=== PATIENT | female | born 1990 | race Caucasian/White ===

== ENCOUNTER → 2017-01-26 | Outpatient (CLI) | payer SELFPAY ==
[2017-01-26 18:01] LABS: HBsAg Prenatal NEGATIVE (NEGATIVE)
[2017-01-26 18:34] LABS: BASO % 0.4 % (0.0-1.0); EOS # 0.1 K/mm3 (0.0-0.50); EOS % 0.8 % (0.0-3.0); LARGE UNSTAINED CELL # 0.1 K/mm3 (0.0-0.4); LARGE UNSTAINED CELL % 0.9 % (0.0-4.0); LYMPH # 1.5 K/mm3 (1.5-6.5); LYMPH % 15.2 % (24.0-44.0); MEAN CORPUSCULAR HEMOGLOBIN 31.7 pg (27.0-33.0); MEAN CORPUSCULAR HGB CONC 35.4 g/dl (32.0-36.5); MEAN CORPUSCULAR VOLUME 89.6 fl (80.0-96.0); MONO # 0.3 K/mm3 (0.0-0.8); MONO % 3.1 % (0.0-5.0); NEUTROPHILS # 7.4 K/mm3 (1.8-7.7); NEUTROPHILS % 79.6 % (36.0-66.0); PLATELET COUNT, AUTOMATED 235 k/mm3 (150-450); RED CELL DISTRIBUTION WIDTH 12.5 % (11.5-14.5); WHITE BLOOD COUNT 9.3 K/mm3 (4.0-10.0)
== END ==
LOC: M SMT 14:31
PROVIDERS: ATTEND Obstetrics & Gynecology
DX: Z34.81 Encounter for supervision of other normal pregnancy, first trimester (principal)

== ENCOUNTER → 2017-03-21 | Outpatient (CLI) | payer MEDICAID ==
[~2017-03-21] MED LIST: FLAG500T PO
--- NOTE | 2017-03-21 15:13 | REP ---
Obstetric ultrasound for anatomy: There is a single intrauterine gestation in a vertex presentation. There is motion and cardiac activity. The heart rate is 167 beats per minute. The placenta is anterior. There is no placenta previa or abruptio. Placenta is grade zero. The amniotic fluid volume subjectively is normal. The cervix measures 3.32 cm length. The maternal adnexa and cul-de-sac are unremarkable. Gestational age by the ultrasound today is 20 weeks 4 days with an FUENTES of 08/04/2017. Gestational age by LMP is 19 weeks 4 days. weight is 383 grams (0 pounds, 13 ounces). This is the 96th percentile for 19 weeks 4 days. The following anatomic structures are identified and are unremarkable: Intracranial lateral ventricles, choroid plexus, facial profile, lungs, four-chamber heart, cardiac right and left ventricular outflow tracts, diaphragm, stomach, cord insertion, three-vessel cord, kidneys, bladder, and upper lower extremities. The intracranial posterior fossa and spine could not be optimally demonstrated because of position. A followup study dedicated to these structures might be considered. Otherwise, there are no anomalies. Signed by Spike Lauren MD 03/21/2017 03:05 P
== END ==
LOC: M RAD 13:46
PROVIDERS: ATTEND Advanced Practice Midwife
DX: Z34.82 Encounter for supervision of other normal pregnancy, second trimester (principal); Z3A.19 19 weeks gestation of pregnancy

== ENCOUNTER → 2017-04-25 | Outpatient (CLI) | payer MEDICAID ==
[~2017-04-25] MED LIST changes: +FLINCHW9 PO
--- NOTE | 2017-04-25 16:43 | REP ---
OB ULTRASOUND: Real-time sonographic evaluation of the gravid uterus is performed. There is a single living intrauterine gestation with estimated gestational age of 24 weeks 4 days based on LMP with EDC 08/11/2017. Today's measurements indicate growth at the upper limits of normal. BPD 67 mm =26 weeks 6 days, over 95th percentile. HC 244 mm = 26 weeks 3 days, 90th percentile. AC 221 mm = 26 weeks 4 day, 90th percentile. Femur length 48 mm = 26 weeks 1 day, 83rd percentile. HC/AC ratio 1.10 within normal range. Estimated weight 936 grams over 97th percentile. heart rate 153 beats per minute. SEEN/GROSSLY UNREMARKABLE Lateral ventricles Yes Posterior fossa Yes Upper lip Yes Four-chamber heart No LVOT No RVOT No Stomach Yes Cord insertion No Three vessel cord No Kidneys Yes Bladder Yes Spine Yes position: Vertex. Placenta: Anterior and grade 0 with no previa or abruption. Amniotic fluid: Within normal limits. Cervix is closed and measures 3.2 cm in length. Signed by Spike Rivera MD 04/26/2017 05:35 P
== END ==
LOC: M RAD 14:32
PROVIDERS: ATTEND Obstetrics & Gynecology
DX: Z36 Encounter for antenatal screening of mother (principal); Z3A.26 26 weeks gestation of pregnancy

== ENCOUNTER → 2017-05-15 | Outpatient (CLI) | payer OTHER ==
[2017-05-15 14:04] LABS: MEAN CORPUSCULAR HEMOGLOBIN 30.1 pg (27.0-33.0); MEAN CORPUSCULAR VOLUME 91.2 fl (80.0-96.0); RED CELL DISTRIBUTION WIDTH 13.5 % (11.5-14.5); WHITE BLOOD COUNT 8.7 10^3/uL (4.0-10.0)
== END ==
LOC: M LAB 11:22
PROVIDERS: ATTEND Advanced Practice Midwife
DX: Z34.02 Encounter for supervision of normal first pregnancy, second trimester (principal)

== ENCOUNTER 2017-05-21 02:15 | Emergency (ER) | payer OTHER ==
[~2017-05-21] VITALS: Ht 162.6 cm; Wt 94.0 kg
[2017-05-21] MEDS ORDERED: FLAG500T PO (05:50)
[2017-05-21 06:00] VITALS: BP 110/66
== END 2017-05-21 06:00 | disposition home or self-care (01) ==
LOC: M ED 02:15
DX: O99.89 Other specified diseases and conditions complicating pregnancy, childbirth and the puerperium (principal); N76.0 Acute vaginitis; Z3A.29 29 weeks gestation of pregnancy

== ENCOUNTER 2017-06-18 22:36 | Outpatient (CLI) | payer OTHER ==
[~2017-06-18] VITALS: Ht 162.6 cm; Wt 97.4 kg
[~2017-06-18 22:36] MED LIST changes: -FLINCHW9 PO
[2017-06-18 22:52] VITALS: BP 123/78
[2017-06-18] MEDS ORDERED: FLINCHW9 PO (22:54)
[2017-06-18 23:22] LABS: MEAN CORPUSCULAR HEMOGLOBIN 29.9 pg (27.0-33.0); MEAN CORPUSCULAR HGB CONC 32.7 g/dl (32.0-36.5); MEAN CORPUSCULAR VOLUME 91.5 fl (80.0-96.0); PLATELET COUNT, AUTOMATED 193 10^3/uL (150-450); RED CELL DISTRIBUTION WIDTH 13.3 % (11.5-14.5); WHITE BLOOD COUNT 8.8 10^3/uL (4.0-10.0)
--- NOTE | 2017-06-19 00:10 | REPUSA ---
Clinical statement: Pain. Findings: The liver demonstrates uniform echotexture and echogenicity, with no mass lesions. The gall bladder is contracted, with numerous very tiny echogenic shadowing foci. There is no evidence of gall bladder wall thickening. The common bile duct measures 4 mm and is within normal limits. The pancrea s is limited in evaluation because of bowel gas. The spleen is unremarkable. The right kidney measure s 13.0 cm in length and the left kidney measures 14.0 cm in length. There is no evidence of hydroneph rosis or nephrolithiasis. The visualized portions of the aorta and inferior vena cava are within norm al limits. No ascites are seen. A intrauterine is demonstrated. heart rate measures 1 47 bpm. Impression: 1. Cholelithiasis, without evidence of acute cholecystitis. 2. No evidence of hydronephrosis or nephrolithiasis. 3. Single live intrauterine as described.
[2017-06-19 00:12] LABS: ALBUMIN 2.2 GM/DL (3.2-5.2); ALBUMIN/GLOBULIN RATIO 0.59 (1.00-1.93); ALKALINE PHOSPHATASE 131 U/L (45-117); ALT/SGPT 18 U/L (12-78); AMYLASE 32 U/L (25-115); AST/SGOT 6 U/L (7-37); BILIRUBIN,DIRECT < 0.1 MG/DL (0.0-0.2); BILIRUBIN,TOTAL 0.2 MG/DL (0.2-1.0); TOTAL PROTEIN 5.9 GM/DL (6.4-8.2)
--- NOTE | 2017-06-19 00:39 | IPNPDOC ---
Text Note Date of Service The patient was seen on 06/19/17. NOTE 27yo G1 FUENTES 08/11/17. Presents @ 32 wks with complaints of Left upper quadrant pain. Denies UC, LOF or bleeding. Fetus active. Pt reports pain is under her ribs, very uncomfortable. States she ate waffles, ham/cheese wrap and chicken fried steak with gravy today. NSt reactive, No UC FH 145, moderate variability, + accels Abdomen soft, gravid US shows gallbladder contracted with numerous echogenic shadowing foci. Amylase, lipase, LFT WNL CBC 8.8>10.9/33.3<193 Reviewed low fat diet, increased fluids. Discharge home. Routine precautions. Keep next appt VS,Fishbone, I+O VS, Fishbone, I+O Laboratory Tests 06/18/17 23:15 Red Blood Count 3.64 L, Mean Corpuscular Volume 91.5, Mean Corpuscular Hemoglobin 29.9, Mean Corpuscular Hemoglobin Concent 32.7, Red Cell Distribution Width 13.3 Vital Signs Date Time Temp Pulse Resp B/P (MAP) Pulse Ox O2 Delivery O2 Flow Rate FiO2 06/18/17 22:52 97.9 84 18 123/78 (93) Gilma Bonilla CNM Jun 19, 2017 00:39
== END 2017-06-19 00:30 | disposition home or self-care (01) ==
LOC: M LDO 22:36
PROVIDERS: ATTEND Obstetrics & Gynecology
DX: O99.89 Other specified diseases and conditions complicating pregnancy, childbirth and the puerperium (principal); Z3A.32 32 weeks gestation of pregnancy; K80.20 Calculus of gallbladder without cholecystitis without obstruction

== ENCOUNTER → 2017-06-21 | Outpatient (REF) | payer OTHER ==
[~2017-06-21] MED LIST changes: +FLINCHW9 PO
== END ==
LOC: M LAB REF 17:18
PROVIDERS: ATTEND Advanced Practice Midwife
DX: Z34.83 Encounter for supervision of other normal pregnancy, third trimester (principal); Z36.89 Encounter for other specified antenatal screening

== ENCOUNTER → 2017-07-17 | Outpatient (REF) | payer OTHER | LOC: M LAB REF 17:19 | PROVIDERS: ATTEND Advanced Practice Midwife | DX: Z34.83 Encounter for supervision of other normal pregnancy, third trimester (principal); Z3A.00 Weeks of gestation of pregnancy not specified ==

== ENCOUNTER 2017-08-09 03:02 | Inpatient (IN) | payer OTHER ==
[2017-08-09 06:58] LABS: HEMATOCRIT 36.1 % (36.0-47.0); HEMOGLOBIN 11.9 g/dl (12.0-16.0); MEAN CORPUSCULAR HEMOGLOBIN 29.6 pg (27.0-33.0); MEAN CORPUSCULAR VOLUME 89.8 fl (80.0-96.0); PLATELET COUNT, AUTOMATED 175 10^3/uL (150-450); RED BLOOD COUNT 4.02 10^6/uL (4.00-5.40); RED CELL DISTRIBUTION WIDTH 14.4 % (11.5-14.5); WHITE BLOOD COUNT 9.2 10^3/uL (4.0-10.0)
[2017-08-09 07:15] LABS: AMPHETAMINES URINE REFLEX NEGATIVE (NEGATIVE); BARBITURATES URINE REFLEX NEGATIVE (NEGATIVE); BENZODIAZEPINES URINE REFLEX NEGATIVE (NEGATIVE); CANNABINOIDS URINE REFLEX NEGATIVE (NEGATIVE); COCAINE METABOLITE URINE REFLE NEGATIVE (NEGATIVE); METHADONE URINE REFLEX NEGATIVE (NEGATIVE); OPIATES URINE REFLEX NEGATIVE (NEGATIVE); PHENCYCLIDINE URINE REFLEX NEGATIVE (NEGATIVE)
[2017-08-09] MEDS: LACTATED RINGER'S 1000 ML IV (09:30)
[2017-08-09] MEDS: OXYTOCIN DRIP 30 UNITS in APPROPRIATE DILUENT 1 EA IV ×2 (09:30→22:00)
[2017-08-09] MEDS ORDERED: FENTANYL 2MCG/ML ROPIVACAINE 0.2% IN 0.9% NACL 200ML IVBAG As Ordered (09:56)
[2017-08-09] MEDS ORDERED: FENTANYL/ROPIVACAINE/NACL BAG 200 ML EPIDURAL (10:30)
[2017-08-09] MEDS ORDERED: REFRIGERATOR IV KEYS XX (10:30)
[2017-08-09] MEDS ORDERED: ePHEDrine SULFATE 25 MG/5 ML(5MG/ML) SYRINGE IV (10:30)
[2017-08-09] MEDS ORDERED: NALOXONE INJ 0.4 MG/1 ML VIAL (J2310) IV (10:30)
[2017-08-09] MEDS ORDERED: EPIDURAL COMMENT XX (10:30)
[2017-08-09] MEDS ORDERED: ONDANSETRON 4MG/2ML VIAL (J2405) IV ×2 (10:30→21:45)
[2017-08-09] MEDS ORDERED: EPIDURAL/PCA KEYS XX (10:30)
[2017-08-09] MEDS ORDERED: diphenhydrAMINE INJ 50MG/ML VIAL (J1200) IV (10:30)
[2017-08-09] MEDS ORDERED: LACTATED RINGER'S 1000 ML IV (10:30)
[2017-08-09] MEDS: LR 1,000 ML IV ×3 (11:35→15:54)
[2017-08-09] MEDS ORDERED: TERBUTALINE SULFATE 1 MG/ML VIAL (J3105) As Ordered (13:39)
[2017-08-09] MEDS: TERBUTALINE SULFATE 1 MG/ML VIAL (J3105) SC (14:58)
[2017-08-09] MEDS ORDERED: ceFAZolin 2 GM/D5W 50 ML IV BAG (J0690 PER 500MG) As Ordered (15:02)
[2017-08-09] MEDS ORDERED: BICITRA 30ML SOLN UDC As Ordered (15:03)
[2017-08-09] MEDS: CALCIUM CARBONATE 500 MG CHEW U/D PO (18:20)
[2017-08-09] MEDS: LIDOCAINE 1% MDV INJ 50 ML VIAL INFIL (21:45)
[2017-08-09] MEDS ORDERED: DOCUSATE SODIUM 100 MG CAP PO (21:45)
[2017-08-09] MEDS ORDERED: METHYLERGONOVINE MALEATE 0.2 MG TAB PO (21:45)
[2017-08-09] MEDS ORDERED: MEASLES,MUMPS,RUBELLA VACCINE INJ (MMR-II) (90707) SC (21:45)
[2017-08-09] MEDS: IBUPROFEN 800 MG TAB PO (23:26)
[2017-08-09] MEDS: ACETAMINOPHEN 500 MG TAB PO (23:29)
[2017-08-10] MEDS: ACETAMINOPHEN 500 MG TAB PO (06:35)
[2017-08-10] MEDS: DIBUCAINE 1% OINTMENT 30GM TOP (06:43)
[2017-08-10] MEDS: PRENATAL VITAMINS CHEWABLE TABLET PO (12:15)
[2017-08-10] MEDS: IBUPROFEN 800 MG TAB PO (14:22)
[2017-08-11] MEDS: IBUPROFEN 800 MG TAB PO ×2 (00:01→12:14)
[2017-08-11] MEDS: ACETAMINOPHEN 500 MG TAB PO (02:42)
[2017-08-11] MEDS: PRENATAL VITAMINS CHEWABLE TABLET PO (08:53)
[2017-08-11 11:57] LABS: FETAL SCREEN PROF. 1 1
[2017-08-11] MEDS: RHOGAM 300 MCG (1500 IU) INJ (J2790) IM (12:17)
== END 2017-08-11 15:22 | disposition home or self-care (01) | DRG 560 ==
LOC: M LDO 03:02 → M LDI 06:00 → M OBS 23:35
PROVIDERS: Obstetrics & Gynecology
PROC: 10E0XZZ Delivery of Products of Conception, External Approach (ICD-10-PCS; principal; 2017-08-09)
PROC: 0KQM0ZZ Repair Perineum Muscle, Open Approach (ICD-10-PCS; 2017-08-09)
PROC: 30233S1 Transfusion of Nonautologous Globulin into Peripheral Vein, Percutaneous Approach (ICD-10-PCS; 2017-08-11)
DX: O70.1 Second degree perineal laceration during delivery (principal); Z37.0 Single live birth; Z3A.39 39 weeks gestation of pregnancy

== ENCOUNTER → 2018-05-10 | Outpatient (CLI) | payer OTHER ==
[2018-05-13 00:09] LABS: M002-IGE CLADOSPORIUM herbarum <0.10 kU/L (Class 0); M003-IGE ASPERGILLUS fumigatus <0.10 kU/L (Class 0); M006-IGE ALTERNARIA alternata <0.10 kU/L (Class 0); M009-IGE FUSARIUM proliferatum <0.10 kU/L (Class 0); M012-IGE AUREOBASIDI PULLULANS <0.10 kU/L (Class 0); M013-IGE PHOMA BETAE <0.10 kU/L (Class 0); M014-IGE EPICOCCUM purpur <0.10 kU/L (Class 0); MOO5-IGE CANDIDA albican <0.10 kU/L (Class 0)
== END ==
LOC: M LAB 12:35
DX: J30.9 Allergic rhinitis, unspecified (principal)
CPT/HCPCS: 86003

== ENCOUNTER → 2023-10-17 | Outpatient (REF) ==
[~2023-10-17] MED LIST changes: +IBUP-1114 PO; +MAPA500T2 PO
== END ==
LOC: M RAD 11:55
PROVIDERS: ATTEND Internal Medicine
DX: R52 Pain, unspecified (principal)